=== PATIENT | female | born 1990 | race Caucasian/White ===

== ENCOUNTER 2017-05-14 22:50 | Inpatient (IN) ==
[2017-05-14] MEDS ORDERED: MEPERIDINE 50 MG/1 ML VIAL IV PRN (23:32)
[2017-05-14] MEDS ORDERED: CITRIC ACID/SODIUM CITRATE 30 ML UDCUP PO ONE (23:34)
[2017-05-14] MEDS ORDERED: FAMOTIDINE 20 MG/2 ML VIAL IV ONE (23:34)
[2017-05-14] MEDS ORDERED: fentaNYL 2 MCG/ROPIV 0.2% EPID 150 ML EPIDURAL SCH (23:45)
[2017-05-15 00:01] LABS: Basophils % 0.2 % (0.0-0.8); Eosinophils % 0.3 % (0.00-10.9); Hematocrit 34.3 VOL% (35.7-47.0); Hemoglobin 11.3 GM/DL (12.0-16.0); Immature Granulocytes % 0.7 %; Immature Granulocytes Absolute 0.09 #; Lymphocytes # 1.8 10*3/uL (1.4-4.0); Lymphocytes % 13.7 % (21.3-54.2); Mean Corpuscular HGB Conc 32.9 GM/DL (32-36); Mean Corpuscular Hemoglobin 29 PG (27-34); Mean Corpuscular Volume 88.9 FL (87-102); Monocytes % 7.8 % (1.7-12.7); Neutrophils # 10.1 10*3/uL (1.4-7.4); Neutrophils % 77.3 % (38.7-73.9); Platelet Count 219 T/CUMM (130-400); Red Blood Count 3.86 MC/CUMM (3.8-5.5); Red Cell Distribution Width 13.8 % (9.3-17.3); White Blood Count 13.1 T/CUMM (4-12)
[2017-05-15] MEDS: LACTATED RINGERS 1,000 ML IV SCH ×3 (00:04→10:49)
[2017-05-15] MEDS ORDERED: BUTORPHANOL 2 MG/ML VIAL ONE (00:20)
[2017-05-15] MEDS: ONDANSETRON 4 MG/2 ML VIAL IV PRN ×3 (00:28→20:13)
[2017-05-15] MEDS: BUTORPHANOL 2 MG/ML VIAL IV PRN ×2 (00:28→20:12)
[2017-05-15 01:02] LABS: Alanine Aminotransferase 14 U/L (13-56); Albumin 2.7 G/DL (3.4-5.0); Alkaline Phosphatase 199 U/L (45-117); Aspartate Amino Transferase 19 U/L (0-37); Bilirubin,Total < 0.39 MG/DL (0.2-1.0); Blood Urea Nitrogen 8 MG/DL (7-18); Calcium 8.4 MG/DL (8.5-10.1); Glucose 96 MG/DL (74-106); Osmolality,Calculated 278.3 MOS/KG (273-304); Potassium 4.2 MMOL/L (3.5-5.1); Sodium 141 MMOL/L (136-145); Total Protein 6.1 G/DL (6.4-8.3)
[2017-05-15] MEDS ORDERED: OXYTOCIN/LR 20 UNIT/1,000 ML BAG IV SCH (06:00)
[2017-05-15] MEDS ORDERED: CITRIC ACID/SODIUM CITRATE 30 ML UDCUP ONE (09:03)
[2017-05-15] MEDS ORDERED: ePHEDrine 50 MG/ML AMP ONE (09:28)
[2017-05-15] MEDS ORDERED: FAMOTIDINE 20 MG/2 ML VIAL IV ONE (09:30)
[2017-05-15 11:48] LABS: Apearance,Urine CLEAR (Clear); Bilirubin,Urine Negative (Negative); Blood, Urine Negative (Negative); Glucose,Urine (UA) Negative (Negative); Ketones,Urine Negative (Negative); Mucus,Urine Occasional /LPF (Occasional); Nitrite,Urine Negative (Negative); Protein,Urine Negative; RBC,Urine <1 /HPF (0-4); Squamous Epithelial Cell,Urine Occasional /HPF (0-10); Urine Color Yellow (Yellow); Urine Specific Gravity 1.009 (1.001-1.035); Urine Urobilinogen < 2.0 EU/DL (0.2-1.0); WBC,Urine <1 /HPF (0-6)
[2017-05-15] MEDS ORDERED: miSOPROStol 200 MCG TABLET ONE (17:28)
[2017-05-15] MEDS ORDERED: LIDOCAINE 1% 50 ML VIAL ONE (17:28)
[2017-05-15] MEDS ORDERED: METHYLERGONOVINE 0.2 MG/1 ML AMP ONE (17:28)
[2017-05-15] MEDS ORDERED: WITCH HAZEL PADS 100/JAR TOP PRN (20:13)
[2017-05-15] MEDS ORDERED: ACETAMINOPHEN 325 MG TABLET PO PRN (20:13)
[2017-05-15] MEDS ORDERED: MEASLES/MUMPS/RUBELLA VACCINE 0.5 ML VIAL SUBCUT ONE (20:13)
[2017-05-15] MEDS ORDERED: IBUPROFEN 800 MG TABLET PO PRN (20:13)
[2017-05-15] MEDS ORDERED: RHO(D) IMMUNE GLOBULIN 300 MCG SYRINGE IM ONE (20:13)
[2017-05-15] MEDS ORDERED: ONDANSETRON 4 MG/2 ML VIAL IV PRN (20:13)
[2017-05-15] MEDS ORDERED: HYDROCORTISONE 2.5% RECTAL CREAM 30 GM TUBE TOP PRN (20:13)
[2017-05-15] MEDS ORDERED: LANOLIN 50% CREAM 0.3 OZ TUBE TOP PRN (20:13)
[2017-05-15] MEDS ORDERED: OXYTOCIN/LR 20 UNIT/1,000 ML BAG IV ONE (20:13)
[2017-05-15] MEDS ORDERED: BISACODYL 10 MG SUPP RECTAL PRN (20:13)
[2017-05-15] MEDS ORDERED: DIPH/TET/ACEL PERT BOOSTER VACCINE 0.5 ML VIAL IM ONE (20:13)
[2017-05-15] MEDS ORDERED: BENZOCAINE 20%/MENTHOL 0.5% SPRAY 56 GM CAN TOP PRN (20:13)
[2017-05-15] MEDS ORDERED: oxyCODONE/ACETAMINOPHEN 5-325 MG TABLET PO PRN ×2 (20:13)
[2017-05-15] MEDS ORDERED: DOCUSATE SODIUM 100 MG CAPSULE PO SCH (21:00)
[2017-05-16] MEDS ORDERED: ACETAMINOPHEN/CODEINE 300-30 MG TABLET PO PRN ×2 (01:46)
[2017-05-16 05:37] LABS: Basophils % 0.3 % (0.0-0.8); Eosinophils % 0.4 % (0.00-10.9); Hematocrit 30.2 VOL% (35.7-47.0); Hemoglobin 10.1 GM/DL (12.0-16.0); Immature Granulocytes % 0.6 %; Immature Granulocytes Absolute 0.06 #; Mean Corpuscular HGB Conc 33.4 GM/DL (32-36); Mean Corpuscular Hemoglobin 29 PG (27-34); Monocytes # 0.7 10*3/uL (0.11-0.8); Monocytes % 7.3 % (1.7-12.7); Neutrophils # 7.1 10*3/uL (1.4-7.4); Neutrophils % 71.4 % (38.7-73.9); Platelet Count 185 T/CUMM (130-400); Red Blood Count 3.43 MC/CUMM (3.8-5.5); Red Cell Distribution Width 13.9 % (9.3-17.3)
[2017-05-16] MEDS: IBUPROFEN 100 MG/5 ML UDCUP PO PRN ×3 (05:59→19:32)
[2017-05-16] MEDS: DOCUSATE SODIUM 100 MG/10 ML UDCUP PO SCH ×3 (10:09→23:18)
[2017-05-17] MEDS: IBUPROFEN 100 MG/5 ML UDCUP PO PRN (04:17)
[2017-05-17 07:43] VITALS: BP 98/61
[2017-05-17] MEDS: DOCUSATE SODIUM 100 MG/10 ML UDCUP PO SCH (10:23)
[2017-05-17] MEDS ORDERED: DIPH/TET/ACEL PERT BOOSTER VACCINE 0.5 ML VIAL IM ONE (10:34)
== END 2017-05-17 11:50 | disposition home or self-care (01) | DRG 775 ==
LOC: N.LDOUT 22:50 → N.LD 22:54 → N.OB 05-15 22:35
PROVIDERS: ADMIT Obstetrics & Gynecology; ATTEND Obstetrics & Gynecology

== ENCOUNTER 2020-10-28 21:01 | Inpatient (IN) ==
[2020-10-28] MEDS ORDERED: BUTORPHANOL 1 MG/ML VIAL IV PRN (21:41)
[2020-10-28] MEDS ORDERED: ONDANSETRON 4 MG/2 ML VIAL IV PRN (21:41)
[2020-10-28] MEDS ORDERED: MEPERIDINE 50 MG/1 ML VIAL IV PRN (21:41)
[2020-10-28] MEDS ORDERED: BUTORPHANOL 2 MG/ML VIAL IV PRN (21:41)
[2020-10-28 21:55] LABS: Basophils % 0.2 % (0.0-0.8); Eosinophils % 0.3 % (0.00-10.9); Hematocrit 33.5 VOL% (35.7-47.0); Hemoglobin 10.9 GM/DL (12.0-16.0); Immature Granulocytes % 0.8 %; Immature Granulocytes Absolute 0.07 #; Lymphocytes # 1.8 10*3/uL (1.4-4.0); Lymphocytes % 20.1 % (21.3-54.2); Mean Corpuscular HGB Conc 32.5 GM/DL (32-36); Mean Corpuscular Volume 85.7 FL (87-102); Mean Platelet Volume 11.7 FL (9.6-12.0); Monocytes % 6.2 % (1.7-12.7); Neutrophils % 72.4 % (38.7-73.9); Platelet Count 218 T/CUMM (130-400); Red Blood Count 3.91 MC/CUMM (3.8-5.5); Red Cell Distribution Width 14.5 % (9.3-17.3); White Blood Count 8.9 T/CUMM (4-12)
[2020-10-28] MEDS ORDERED: LACTATED RINGERS 1,000 ML IV SCH (22:00)
[2020-10-28 22:18] LABS: Albumin 2.9 G/DL (3.4-5.0); Bilirubin,Total 0.4 MG/DL (0.20-1.00); Calcium 8.4 MG/DL (8.5-10.1); Osmolality,Calculated 272.8 MOS/KG (273-304); Potassium 3.5 MMOL/L (3.5-5.1); Total Protein 6.7 G/DL (6.4-8.2)
[2020-10-29] MEDS ORDERED: OXYTOCIN/LR 20 UNIT/1,000 ML BAG IV SCH (08:30)
[2020-10-29] MEDS ORDERED: diphenhydrAMINE 50 MG/1 ML VIAL IV PRN ×2 (09:12)
[2020-10-29] MEDS ORDERED: FAMOTIDINE 20 MG/2 ML VIAL IV ONE (09:12)
[2020-10-29] MEDS ORDERED: hydrOXYzine HCL 25 MG/1 ML VIAL IM PRN (09:12)
[2020-10-29] MEDS ORDERED: ePHEDrine 50 MG/ML VIAL IV PRN (09:12)
[2020-10-29] MEDS ORDERED: LACTATED RINGERS 1,000 ML IV ONE (09:12)
[2020-10-29] MEDS ORDERED: ONDANSETRON 4 MG/2 ML VIAL IV ONE (09:12)
[2020-10-29] MEDS ORDERED: PROMETHAZINE 25 MG/1 ML VIAL IM ONE (09:12)
[2020-10-29] MEDS ORDERED: NALOXONE 0.4 MG/ML VIAL IV PRN (09:12)
[2020-10-29] MEDS ORDERED: CITRIC ACID/SODIUM CITRATE 30 ML UDCUP PO ONE (09:12)
[2020-10-29] MEDS ORDERED: fentaNYL 2 MCG/ROPIV 0.2% EPID 100 ML EPIDURAL SCH (09:30)
[2020-10-29 11:47] LABS: Bilirubin,Urine Negative (Negative); Blood, Urine Negative (Negative); Glucose,Urine (UA) Negative (Negative); Ketones,Urine Negative (Negative); Mucus,Urine Occasional /LPF (Occasional); Nitrite,Urine Negative (Negative); Protein,Urine Negative; RBC,Urine 3 /HPF (0-4); Squamous Epithelial Cell,Urine Few /HPF (0-10); Urine Appearance CLEAR (Clear); Urine Color Yellow (Yellow); Urine Specific Gravity 1.014 (1.001-1.035); Urine Urobilinogen < 2.0 EU/DL (0.2-1.0)
[2020-10-29] MEDS ORDERED: miSOPROStoL 200 MCG TABLET ONE (12:49)
[2020-10-29] MEDS ORDERED: TRANEXAMIC ACID 1,000 MG/10 ML VIAL ONE (12:49)
[2020-10-29] MEDS ORDERED: METHYLERGONOVINE 0.2 MG/1 ML AMP ONE (12:50)
[2020-10-29] MEDS ORDERED: CARBOPROST TROMETHAMINE 250 MCG/ML AMP IM ONE (12:50)
[2020-10-29] MEDS ORDERED: OXYTOCIN/LR 20 UNIT/1,000 ML BAG IV ONE ×2 (12:50→13:46)
[2020-10-29 13:24] LABS: Cord Arterial Blood HCO3 19.3 MMOL/L
[2020-10-29 13:28] LABS: Cord Venous Blood HCO3 20.8 MMOL/L; Cord Venous Blood PCO2 43.5 MMHG; Cord Venous Blood PO2 19.2
[2020-10-29] MEDS ORDERED: WITCH HAZEL PADS 100/JAR TOP PRN (13:46)
[2020-10-29] MEDS ORDERED: oxyCODONE/ACETAMINOPHEN 5-325 MG TABLET PO PRN ×2 (13:46)
[2020-10-29] MEDS ORDERED: RHO(D) IMMUNE GLOBULIN 300 MCG SYRINGE IM ONE (13:46)
[2020-10-29] MEDS ORDERED: MEASLES/MUMPS/RUBELLA VACCINE 0.5 ML VIAL SUBCUT ONE (13:46)
[2020-10-29] MEDS ORDERED: HYDROCORTISONE 2.5% RECTAL CREAM 30 GM TUBE TOP PRN (13:46)
[2020-10-29] MEDS ORDERED: BENZOCAINE 20%/MENTHOL 0.5% SPRAY 56 GM CAN TOP PRN (13:46)
[2020-10-29] MEDS ORDERED: LANOLIN 50% CREAM 0.3 OZ TUBE TOP PRN (13:46)
[2020-10-29] MEDS ORDERED: ACETAMINOPHEN 325 MG TABLET PO PRN (13:46)
[2020-10-29] MEDS ORDERED: DIPH/TET/ACEL PERT BOOSTER VACCINE 0.5 ML VIAL IM ONE (13:46)
[2020-10-29] MEDS ORDERED: ONDANSETRON 4 MG/2 ML VIAL IV PRN (13:46)
[2020-10-29] MEDS ORDERED: BISACODYL 10 MG SUPP RECTAL PRN (13:46)
[2020-10-29] MEDS: IBUPROFEN 800 MG TABLET PO PRN (18:40)
[2020-10-29] MEDS: DOCUSATE SODIUM 100 MG CAPSULE PO SCH (20:37)
[2020-10-30 05:01] LABS: Basophils % 0.4 % (0.0-0.8); Eosinophils # 0.1 10*3/uL (0.0-0.87); Eosinophils % 0.8 % (0.00-10.9); Hematocrit 32.6 VOL% (35.7-47.0); Hemoglobin 10.4 GM/DL (12.0-16.0); Immature Granulocytes % 0.5 %; Immature Granulocytes Absolute 0.04 #; Lymphocytes # 1.8 10*3/uL (1.4-4.0); Lymphocytes % 22.1 % (21.3-54.2); Mean Corpuscular HGB Conc 31.9 GM/DL (32-36); Mean Corpuscular Volume 86.5 FL (87-102); Mean Platelet Volume 11.4 FL (9.6-12.0); Monocytes % 7.6 % (1.7-12.7); Neutrophils % 68.6 % (38.7-73.9); Platelet Count 187 T/CUMM (130-400); Red Blood Count 3.77 MC/CUMM (3.8-5.5); Red Cell Distribution Width 14.5 % (9.3-17.3)
[2020-10-30] MEDS: IBUPROFEN 800 MG TABLET PO PRN ×2 (06:10→21:37)
[2020-10-30] MEDS: DOCUSATE SODIUM 100 MG CAPSULE PO SCH ×2 (07:41→21:37)
[2020-10-30] MEDS ORDERED: MAGNESIUM HYDROXIDE SUSP 30 ML UDCUP PO PRN (22:14)
[2020-10-31] MEDS: IBUPROFEN 800 MG TABLET PO PRN (06:24)
[2020-10-31 07:38] VITALS: BP 98/56
[2020-10-31] MEDS: DOCUSATE SODIUM 100 MG CAPSULE PO SCH (08:31)
== END 2020-10-31 13:50 | disposition home or self-care (01) | DRG 807 ==
LOC: N.LDOUT 21:01 → N.LD 21:03 → N.OB 10-29 17:34
PROVIDERS: ADMIT Specialist; ATTEND Specialist